=== PATIENT | female | born 1995 | race Caucasian/White ===

== ENCOUNTER 2018-11-01 18:09 | Observation (INO) ==
--- NOTE | 2018-11-01 18:51 | OB/GYN Progress Note ---
Date of Encounter: 11/01/18 Time of Encounter: 18:51 - Assessment and Plan (1) 39 weeks gestation of Current Visit: Yes Status: Acute Patient declined repeat cervical exam stating she knows she has not made any change NST reactive Discharge home with labor precautions and how to increased comfort at the end of FOllow up in the office as scheduled and PRN POC per consult with Dr Becker. (2) NST (non-stress test) reactive Current Visit: Yes Status: Acute Subjective - Subjective Principal diagnosis: Labor evaluation Interval history: MS Dowell is a at 39 weeks and 0 days that presents to triage with c/o contractions. She states positive movement. She denies headaches, vision changes, epigastric pain, leaking of fluid, and vaginal bleeding. She has kimball a normal course. Antepartum ROS: movement normal, contractions Objective - Vital Signs Vital Signs: Intake and Output 11/01/18 11/01/18 11/01/18 07:59 15:59 23:59 Other: Weight 85.7 kg Patient Weight 11/01/18 23:59 Weight 85.7 kg - Exam FHR: auscultation normal, category 1 FHR comments: Baseline 134 moderate variability with > 15 x 15 accels and no decels Contractions every 2-5 minutes Abdomen: Present: normal appearance, soft, gravid Uterus: Present: normal. Absent: firm Cervical dilation: 1-2 Cervix effacement: 80 station: -2
[2018-11-01 19:06] LABS: Bilirubin,Urine Negative (Negative); Blood,Urine Negative (Negative); Clarity,Urine Clear (Clear); Color,Urine Yellow (Yellow); Glucose,Urine (UA) Normal (Normal); Ketones,Urine 15 mg/dL (Negative); Leukocyte Esterase,Urine Moderate (Negative); Nitrite,Urine Negative (Negative); Protein,Urine Negative (Neg-Trace); Specific Gravity,Urine 1.014 (1.010-1.025); Urobilinogen,Urine Normal (Normal)
[2018-11-01 19:09] LABS: Amphetamine Screen,Urine Negative ng/mL (Cutoff=1000); Barbiturate Screen,Urine Negative ng/mL (Cutoff=200); Benzodiazepines Screen,Urine Negative ng/mL (Cutoff=200); Cannabinoid Screen,Urine Negative ng/mL (Cutoff = 50); Cocaine Screen,Urine Negative ng/mL (Cutoff= 300); Opiate Screen,Urine Negative ng/mL (Cutoff=300); Phencyclidine Screen,Urine Negative ng/mL (Cutoff=25)
[2018-11-01 19:11] LABS: Bacteria,Urine Few per hpf (None-Few)
== END 2018-11-01 19:48 | disposition home or self-care (01) ==
LOC: 1NENULAB
PROVIDERS: ADMIT Advanced Practice Midwife; ATTEND Advanced Practice Midwife

== ENCOUNTER 2018-11-06 20:11 | Inpatient (IN) ==
[2018-11-06] MEDS ORDERED: Ondansetron 4 MG/2 ML VIAL IVP PRN (20:55)
[2018-11-06] MEDS ORDERED: Naloxone 0.4 MG/ML INJ IVP PRN (20:55)
[2018-11-06] MEDS ORDERED: miSOPROStol 25 MCG TABLET PO PRN (20:55)
[2018-11-06] MEDS ORDERED: *HR* Nalbuphine 10 MG/ML AMPUL IVP PRN (20:55)
[2018-11-06] MEDS ORDERED: Lidocaine 1% 20 ML MDV INFILT PRN (20:55)
[2018-11-06] MEDS ORDERED: Famotidine 20 MG/2 ML VIAL IVP PRN (20:55)
[2018-11-06] MEDS ORDERED: Metoclopramide 10 MG/2 ML VIAL IVP PRN (20:55)
[2018-11-06] MEDS ORDERED: Oxytocin 20 units/ LR 1000 mL 20 UNIT/1,000 ML BAG IVC SCH (21:00)
[2018-11-06] MEDS ORDERED: Ringers Solution, Lactated 1,000 ML IVC SCH (21:00)
[2018-11-06] MEDS ORDERED: EPHEDrine 50 MG/ML VIAL IVP PRN (22:34)
--- NOTE | 2018-11-06 22:34 | Anesthesia Evaluation PreOp ---
Date of Encounter: 11/06/18 Time of Encounter: 22:32 - Past History Planned Operation: abbi Cardiac History: Denies any Significant Hx Pulmonary History: Denies Any Significant HX BUFFET SERVER History: Denies Any Significant HX Other Medical History: Denies Any Significant HX Anesthesia History: No Prior Anesthetic Complications, Past Anesthesia (none) : Yes (g1, 39.5 weeks) Alcohol Use: none Drug use: none Medications and Allergies Ondansetron [Zofran ODT] 8 mg SL Q8H PRN 11/01/18 [History] Allergy/AdvReac Type Severity Reaction Status Date / Time codeine AdvReac See Verified 11/01/18 18:24 Comments - Meds/Allergy Pre-op Review Medications Reviewed: Yes Allergies Reviewed: Yes Beta Blockers on Current Med List: No Anesthesia Exam - HEENT Pupil (Motor): Pupils equal Mallampati: I Teeth: Normal Oral Opening: Greater than 3 - BUFFET SERVER LOC: Oriented BUFFET SERVER Motor: Normal RUE, Normal LUE, Normal RLE, Normal LLE, Normal Face BUFFET SERVER Sensory: Normal: RUE, LUE, RLE, LLE, Face - Cardiac Rhythm: Regular Murmur: None JVD: No Carotid Bruit: No - Pulmonary Breath Sounds: bilateral Clear Respiratory Effort: Symmetrical Anesthesia Assess/Plan ASA Score: 2 Level of consciousness: Cooperative Anesthetic Plan: Epidural Monitoring Plan: Standard Monitors
[2018-11-06] MEDS ORDERED: Epidural Premix (fent/bupiv) 110 ML EP SCH (22:45)
--- NOTE | 2018-11-06 23:39 | OB/GYN History & Physical ---
Date of Encounter: 11/06/18 Time of Encounter: 23:14 Assessment and Plan (1) 39 weeks gestation of Current visit: No Status: Acute Admit for IOL at 39w5d (2) Encounter for elective induction of labor Current visit: Yes Status: Acute Plan of care discussed with Ashley Mcknight CNM who saw patient in the office today -Cervical fong ripening balloon -PO Cytotec if inadequate contraction pattern -AROM when appropriate -Pitocin augmentation if needed -IV pain medication or epidural when patient desires. (3) NST (non-stress test) reactive Current visit: No Status: Acute FHR 120 bpm, moderate variability, +15x15 accels, no decels. History of Present Illness Chief complaint: IOL at 39w5d HPI: Ms. Dowell is a 23 year old female at 39w5d who presents for scheduled IOL for term with favorable cervix. She reports positive movement, denies contractions, bleeding, and fluid leakage. She denies any problems with this . Blood type A+ GBS negative Rubella Immune HBSAG negative T. Pall negative HIV NR Hep C NR Past Med Surg Social Fam HX - Past Medical History Source: patient Medical history: no medical history Psychiatric history: no psych history - Past Surgical History Surgical History: other Additional surgical history: teeth pulled - Social History Smoking Status: Never smoker Smokeless Tobacco Status: No Alcohol use: none Drug use: none Current living situation: Home - Independent Activity Level: Independent ambulation Recent Out of Country Travel Within the Last 8 Weeks: No Exposure or Possible Exposure to Illness During Travel: No - Family History Sister Age: 24 Living Status: Still Living Hx Family Cardiac Disorders: No Hx Family Respiratory Disorders: No Hx Family Cancer: No Hx Family GI Disorders: No Hx Family Genitourinary Disorders: No Hx Family Endocrine Disorder: No Hx Family Musculoskeletal Disorders: No Hx Family Neuromuscular Disorders: No Hx Family Neurologic Disorders: No Hx Family HEENT Disorders: No Hx Family Autoimmune Disorders: No Hx Family Reproductive Disorders: No Hx Family Psychosocial Disorders: No Hx Family Medical Disorders: No Obstetrical History - Pregnancies : 1 Para: 0 Term: 0 : 0 Ab's: 0 Livin Medications and Allergies Ondansetron [Zofran ODT] 8 mg SL Q8H PRN 11/01/18 [History] Allergy/AdvReac Type Severity Reaction Status Date / Time codeine AdvReac See Verified 11/01/18 18:24 Comments Review of System OB All systems PM: reviewed and no additional remarkable complaints except as stated Exam - Vital Signs Vital signs: Initial Vital Signs Pulse Resp BP 109 15 99/58 11/06/18 22:27 11/06/18 22:27 11/06/18 22:27 - Constitutional Constitutional: well developed, well nourished, no acute distress, average body habitus - HEENT HEENT: Normocephaly, Mucus Membranes Moist - Neck Neck exam: full ROM - Lungs Respiratory exam: CTAB - Cardiovascular Cardiovascular exam: RRR, +S1, +S2 - Abdomen Abdomen: Present: bowel sounds normal, gravid, non tender - Extremities Extremities exam: full ROM, normal capillary refill, normal inspection - Vulva Vulva: bilateral: normal - Vagina Vagina: Present: normal moisture - Cervix Dilation: 3 Effacement: 50 Station: -2 - Uterus Uterus exam: Present: normal size, normal contour - Anus/Rectum Anus/Rectum: Present: normal perianal skin Results All other labs normal. - VTE Reasons for not Prescribing Prophylaxis: Treatment not Indicated - Low risk for VTE
[2018-11-06 23:58] LABS: Basophils % 0.2 %; Eosinophils # 0.1 K/mcL (0.0-0.6); Eosinophils % 0.6 %; Hematocrit 33.9 % (35.3-44.9); Hemoglobin 10.8 g/dL (11.5-15.4); Immature Granulocytes % 0.3 % (0-4); Lymphocytes % 21.8 %; Mean Corpuscular HGB Conc 31.9 g/dL (31.6-35.5); Mean Corpuscular Hemoglobin 25.6 pg (28.0-33.3); Mean Corpuscular Volume 80.3 fL (83.0-100.0); Monocytes # 0.8 K/mcL (0.0-1.3); Monocytes % 8.6 %; Neutrophils # 6.2 K/mcL (1.6-8.9); Platelet Count 255 K/mcL (140-400); Red Blood Count 4.22 M/mcL (3.82-4.97); Red Cell Distribution Width 14.6 % (11.5-14.5); Segmented Neutrophils % 68.5 %; White Blood Count 9.1 K/mcL (4.3-11.1)
--- NOTE | 2018-11-07 | Event Note ---
Date of Encounter: 11/06/18 Time of Encounter: 23:58 Double cervical fong balloon inserted without difficulty. 60mL sterile water inserted into uterine balloon, 40 mL sterile water instilled in vaginal balloon. Patient tolerated with minimal discomfort but did experiencing vomiting immediately after placement. Zofran given as ordered.
[2018-11-07 00:02] LABS: Amphetamine Screen,Urine Negative ng/mL (Cutoff=1000); Barbiturate Screen,Urine Negative ng/mL (Cutoff=200); Benzodiazepines Screen,Urine Negative ng/mL (Cutoff=200); Cannabinoid Screen,Urine Negative ng/mL (Cutoff = 50); Cocaine Screen,Urine Negative ng/mL (Cutoff= 300); Opiate Screen,Urine Negative ng/mL (Cutoff=300); Phencyclidine Screen,Urine Negative ng/mL (Cutoff=25)
--- NOTE | 2018-11-07 00:31 | Anesthesia Procedures ---
Date of Encounter: 11/07/18 Time of Encounter: 00:29 Procedures: Anesthesia - Epidural/Spinal Patient ID/Chart reviewed: Yes Patient examined: Yes OB Eval: Contractions: Non-stressed pattern Consent Obtained: Yes Supplemental Oxygen: None/Room Air Site Prep: Aseptic Technique Patient position: upright Local Anesthetic: Lidocaine 1% Amount of Local Anesthetic used: 3 Touhy Needle Gauge: 18 Touhy Needle Depth (cm): 8 Catheter Depth at Skin (cm): 13 Test Dose (1.5% Lido + Epi): Volume given (mls): 3 Test Dose Result: Negative Loading Dose: Fentanyl (mcg): 100 Loading Dose: Other: 6ml 0.2% ropivicaine Loading Dose Administered: Thru Touhy Needle Infusion Med: 0.125% Bupivacaine w/ 2 mcg/ml Fentanyl Infusion Rate (mls/hr): [address]: Tegaderm Interspace Used: L4-L5 Loss of Resistance (MEREDITH): Yes Blood: No CSF: No Paresthesia: No Procedure: strict asepsis, one attempt without redirections. good MEREDITH, no parasthesias, no heme, no csf. bolus through needle, gtt to 14cc/hr. FHR unchanged
--- NOTE | 2018-11-07 04:19 | Event Note ---
Date of Encounter: 11/07/18 Time of Encounter: 03:40 Patient expelled fong balloon while having a bowel movement. Accepts PO Cytotec if contractions will allow.
--- NOTE | 2018-11-07 09:15 | OB Labor Progress Note ---
Date of Encounter: 11/07/18 Time of Encounter: 09:12 Labor Progress Note - Subjective Subjective: Patient doing well. Discussed POC with patient. Patient denies any questions or concerns. - Cervix Cervix: 4.5 per RN - Heart Tones Heart Tones: 145 bpm moderate variability +15x15 accels no decels noted. Cat. 1 tracing - [place]: 2-2.5 min apart - Interventions Interventions: EFM strip reviewed - Plan Physician notified: No Plan: Continue labor management Will start Pitocin
[2018-11-07] MEDS ORDERED: Bupivacaine-MPF 0.25% 10 ML VIAL ONE (10:02)
[2018-11-07] MEDS ORDERED: *HR* FentaNYL (PF) 100 MCG/2 ML VIAL ONE (10:02)
--- NOTE | 2018-11-07 11:30 | Anesthesia Procedures ---
Date of Encounter: 11/07/18 Time of Encounter: 11:03 Procedures: Anesthesia - Epidural/Spinal Patient ID/Chart reviewed: Yes Patient examined: Yes OB Eval: Gestational age: 39 weeks 6 days OB Eval: : 1 OB Eval: Hx Para: 0 OB Eval: Contractions: Non-stressed pattern Consent Obtained: Yes Supplemental Oxygen: None/Room Air Site Prep: Aseptic Technique, Sterile prep and drape, 0.5% Chlorhexidine/Alcohol Patient position: upright Local Anesthetic: Lidocaine 1% Amount of Local Anesthetic used: 3 Touhy Needle Gauge: 18 Touhy Needle Depth (cm): 7 Catheter Depth at Skin (cm): 12 Test Dose (1.5% Lido + Epi): Volume given (mls): 3 Test Dose Result: Negative Loading Dose: 0.25% Marcaine (mls): 5 Loading Dose: Fentanyl (mcg): 100 Loading Dose Administered: Thru Catheter Infusion Med: 0.125% Bupivacaine w/ 2 mcg/ml Fentanyl Infusion Rate (mls/hr): 14 (w/ demand bolus of 5mL q30min PRN) Catheter Secured in Place: Tegaderm, Tape Interspace Used: L3-L4 Loss of Resistance (MEREDITH): Yes Blood: No CSF: No Paresthesia: No Procedure: successful on 1st attempt; Patient tolerated procedure well; VSS Vitals + FHT's: see Artie LARA's electronic records for VS entry.
--- NOTE | 2018-11-07 12:21 | OB Labor Progress Note ---
Date of Encounter: 11/07/18 Time of Encounter: 12:18 Labor Progress Note - Subjective Subjective: Patient resting comfortably with epidural in place. An catheter draining clear yellow urine. - Cervix Cervix: 6.5/90/-1 - Heart Tones Heart Tones: 145 bpm moderate variability +15x15 accels early decel noted. - [place]: 3-4 min apart - Interventions Interventions: SVE, AROM moderate amount of clear fluid. IUPC placed without difficulty. - Plan Physician notified: Yes Plan: Dr. Larose updated on patient's labor status continue labor management anticipate
--- NOTE | 2018-11-07 20:07 | OB/GYN Procedure Note ---
Delivery - Delivery Date: 11/07/18 Provider: Ashley Mcknight Intrapartum events: none Delivery induction: AROM, oxytocin, fong Delivery monitor: external FHT, internal uterine Anesthesia: epidural Quantitated Blood Loss: 150 - Infant (s) A Delivery Date: 11/07/18 Delivery Time: 19:36 Presentation: vertex Position: MAURICIO Route of delivery: Gender: Male Viability: Viable Pounds: 7 Ounces: 5 at 1 minute: 9 at 5 mins: 10 Shoulder Dystocia: not encountered Specimens collected: cord blood Placenta: spontaneous, uterine exploration Cord: nuchal cord (x1 loose), 3 umbilical vessels, nuchal reduced - Repair Episiotomy: none Laceration Description: Perineal - 2nd Degree (repaired with 3-0 vicryl) - Complications Delivery complications: none - Disposition Mom disposition: stable in LDR disposition: stable in LDR - Comments Comments: Called to LDR. Patient complete and ready to push. Patient placed in stirrups and prepped for vaginal delivery. Under maternal effort patient delivered a viable male infant. A nuchal cord was noted and easily reduced. No shoulder dystocia or meconium noted. was placed on maternal abdomen. A second degree laceration was noted a repaired with 3-0 vicryl. Cord was clamped and cut after pulsations ceased. Cord blood and segment was collected. Placenta delivered spontaneously and visually intact. Uterus was explored and blood clots were expressed. EBL 150, Apgars 9/10, pericare provided. All counts correct. Both Mother and infant stable in LDR for 2 hour recovery.
[2018-11-07] MEDS ORDERED: Ibuprofen 600 MG TABLET PO PRN (22:41)
[2018-11-07] MEDS ORDERED: Oxytocin 20 units/ LR 1000 mL 20 UNIT/1,000 ML BAG IVC SCH (22:41)
[2018-11-07] MEDS ORDERED: Benzocaine/Menthol 56 GM AEROSOL SPRAY TP PRN (22:41)
[2018-11-08] MEDS: Acetaminophen 325 MG TABLET PO PRN ×2 (00:41→15:14)
[2018-11-08] MEDS: Prenatal Vit/FA 1 EACH TABLET PO SCH (09:15)
--- NOTE | 2018-11-08 12:25 | OB/GYN Progress Note ---
Date of Encounter: 11/08/18 Time of Encounter: 12:23 - Assessment and Plan (1) Status post vaginal delivery Current Visit: Yes Status: Acute Patient meeting day one milestones. Pain well-controlled with prescribed medications. Voiding without difficulty, tolerating regular diet, bleeding light. No bowel movement yet. Anticipate discharge tomorrow. Patient desires to stay overnight. (2) Breast feeding status of mother Current Visit: Yes Status: Acute (3) Second degree perineal laceration Current Visit: Yes Status: Acute Motrin, Dermoplast, ice packs as needed for discomfort. Subjective - Subjective Principal diagnosis: Status post vaginal delivery Interval history: Delivery Date: 11/07/18 Provider: Ashley Mcknight Intrapartum events: none Delivery induction: AROM, oxytocin, fong Delivery monitor: external FHT, internal uterine Anesthesia: epidural Quantitated Blood Loss: 150 - Infant (s) A Delivery Date: 11/07/18 Delivery Time: 19:36 Presentation: vertex Position: MAURICIO Route of delivery: Gender: Male Viability: Viable Pounds: 7 Ounces: 5 at 1 minute: 9 at 5 mins: 10 Shoulder Dystocia: not encountered Specimens collected: cord blood Placenta: spontaneous, uterine exploration Cord: nuchal cord (x1 loose), 3 umbilical vessels, nuchal reduced - Repair Episiotomy: none Laceration Description: Perineal - 2nd Degree (repaired with 3-0 vicryl) - Complications Delivery complications: none - Disposition Mom disposition: stable in LDR disposition: stable in LDR - Comments Comments: Called to LDR. Patient complete and ready to push. Patient placed in stirrups and prepped for vaginal delivery. Under maternal effort patient delivered a viable male . A nuchal cord was noted and easily reduced. No shoulder dystocia or meconium noted. Infant was placed on maternal abdomen. A second degree laceration was noted a repaired with 3-0 vicryl. Cord was clamped and cut after pulsations ceased. Cord blood and segment was collected. Placenta d elivered spontaneously and visually intact. Uterus was explored and blood clots were expressed. EBL 150, Apgars 9/10, pericare provided. All counts correct. Both Mother and infant stable in LDR for 2 hour recovery. Patient reports: appetite normal, voiding normally, pain well controlled, ambulating normally : doing well, nursing well Objective - Latest Vital Signs Latest vital signs: Vital Signs Temp Pulse Pulse Resp BP Pulse Ox 11/08/18 07:35 98.4 F 84 16 97/66 97 11/08/18 04:15 97.4 F L 77 14 96/64 99 11/08/18 01:30 98.9 F 11/08/18 00:30 100.3 F H 89 14 111/73 96 11/07/18 23:30 98.9 F 86 14 105/68 97 11/07/18 22:30 98.1 F 87 87 16 114/70 99 Intake and Output 11/07/18 11/08/18 11/08/18 23:59 07:59 15:59 Intake Total 240 / 240 400 / 400 Output Total 500 / 500 1200 / 1300 100 / 1300 Balance -260 / -260 -800 / -900 -100 / -900 Intake: Oral 240 / 240 400 / 400 Output: Urine 500 / 500 1200 / 1300 100 / 1300 Other: Weight 82 kg - Exam Lungs: bilateral: normal Chest: Normal S1, Normal S2 Extremities: Present: normal Abdomen: Present: normal appearance, soft Uterus: Present: normal, firm Uterus Position: At Umbilicus, Midline
[2018-11-09] MEDS ORDERED: Lanolin 7 G OINT...G. TP PRN (02:26)
[2018-11-09 08:44] VITALS: BP 122/67
[2018-11-09] MEDS: Prenatal Vit/FA 1 EACH TABLET PO SCH (09:24)
--- NOTE | 2018-11-09 12:35 | Discharge Summary ---
Date of Encounter: 11/09/18 Time of Encounter: 12:33 - Discharge Diagnosis (1) Breast feeding status of mother Priority: Secondary Status: Acute Comments: Community resources provided (2) Status post vaginal delivery Priority: Primary Status: Acute Comments: Feeling well Tolerating regular diet Pain well-controlled with by mouth pain meds Ambulating independently Voiding independently Lochia light Passing flatus, no BM yet Vital signs stable Discharge home today - Discharge Medications Prescriptions: New Breast Pump [BREAST PUMP] 1 each .ROUTE AD #1 each Acetaminophen [Tylenol] 650 mg PO Q6HR PRN tablet PRN Reason: Mild Pain Ibuprofen [Motrin] 600 mg PO Q6HR PRN #30 tablet PRN Reason: Cramping Benzocaine/Menthol [place] [Dermoplast [place]] 1 appl TP QID PRN aerosol PRN Reason: See Comments Docusate [Colace] 100 mg PO BID #30 capsule Lanolin [Lansinoh] 1 appl TP TID PRN oint...g. PRN Reason: sore nipples Continued Ondansetron [Zofran ODT] 8 mg SL Q8H PRN PRN Reason: Nausea Home Medications: Ondansetron [Zofran ODT] 8 mg SL Q8H PRN 11/01/18 [History] Breast Pump [BREAST PUMP] 1 each .ROUTE AD #1 each 11/08/18 [Rx] Acetaminophen [Tylenol] 650 mg PO Q6HR PRN tablet 11/09/18 [Rx] Benzocaine/Menthol [place] [Dermoplast [place]] 1 appl TP QID PRN aerosol 11/09/18 [Rx] Docusate [Colace] 100 mg PO BID #30 capsule 11/09/18 [Rx] Ibuprofen [Motrin] 600 mg PO Q6HR PRN #30 tablet 11/09/18 [Rx] Lanolin [Lansinoh] 1 appl TP TID PRN oint...g. 11/09/18 [Rx] Allergies/Adverse Reactions: Allergy/AdvReac Type Severity Reaction Status Date / Time codeine AdvReac See Verified 11/01/18 18:24 Comments Data Procedures and tests throughout hospitalization: Laboratory Tests 11/06/18 11/06/18 22:40 22:41 WBC 9.1 RBC 4.22 Hgb 10.8 L Hct 33.9 L MCV 80.3 L MCH 25.6 L MCHC 31.9 RDW 14.6 H Plt Count 255 MPV 10.0 Immature Gran % 0.3 Seg Neutrophils % 68.5 Lymphocytes % 21.8 Monocytes % 8.6 Eosinophils % 0.6 Basophils % 0.2 Neutrophils # 6.2 Lymphocytes # 2.0 Monocytes # 0.8 Eosinophils # 0.1 Basophils # 0.0 Urine Opiates Screen Negative Ur Buprenorphine Scrn Negative Ur Barbiturates Screen Negative Ur Phencyclidine Scrn Negative Ur Amphetamines Screen Negative U Benzodiazepines Scrn Negative Urine Cocaine Screen Negative U Marijuana (THC) Screen Negative Ur Drug Screen Interp See Below Date of admission: 11/06/18 20:11 Primary care physician: PCP NONE Discharging clinician: Roma Roe Anticipated date of discharge: 11/09/18 - Patient Status Disposition: Home, Self-Care Condition: Good Functional capacity at discharge: independent ambulation Overall status at discharge: patient is progressing back to baseline - Discharge Instructions Follow Up With: NONE,PCP [Primary Care Provider] - Ashley Mcknight CNM [Non-Partnered Physician] - - Diet and Activity Activity: increase activity as tolerated Diet: regular diet Hospital Course Reason for admission: induction of labor Delivery: Episiotomy: none Laceration: 2nd degree Other procedures: none complications: none Discharge diagnosis: IUP at term delivered baby: male Time Attestation: Total time spent providing and/or coordinating discharge services: Time Spent: Less than 30 minutes Exam - Constitutional Vitals: Temp Pulse Resp BP Pulse Ox 99 F 122 14 122/67 99 11/09/18 08:42 11/09/18 08:42 11/09/18 08:42 11/09/18 08:42 11/09/18 08:42 General appearance IM: A&O X 3, pleasant, obese, answers questions appropriately - Respiratory Respiratory exam: Present: CTAB - Cardiovascular Cardiovascular exam IM: Present: RRR, +S1, +S2 - GI/Abdominal GI/Abdominal exam IM: normal bowel sounds, no peritoneal signs - Rectal Rectal exam: deferred - Uterine Tone: Firm Uterus Position: 2 Fingers Below Umbilicus, Midline - Extremities Exam Extremities exam IM: Present: full ROM, normal capillary refill, normal inspection, radial pulses palpable and symmetrical - Neurological Exam Neurological exam: alert, CN II-XII intact, normal gait, oriented X3, reflexes normal, no focal deficits, strengths equal and symetr throughout - Psychiatric Additional comments: Signs and symptoms of depression discussed with patient and partner and both verbalized understanding of when to seek help
== END 2018-11-09 13:40 | disposition home or self-care (01) | DRG 807 ==
LOC: 1NENULAB 20:11 → 1NENUOBS 11-07 22:39
PROVIDERS: ADMIT Advanced Practice Midwife; ATTEND Registered Nurse

== ENCOUNTER → 2020-08-17 14:30 | Observation (INO) ==
[2020-08-17 12:17] LABS: Bacteria,Urine Few per hpf (None-Few); Bilirubin,Urine Negative (Negative); Blood,Urine Negative (Negative); Clarity,Urine Turbid (Clear); Color,Urine Yellow (Yellow); Glucose,Urine (UA) Normal (Normal); Ketones,Urine Negative (Negative); Leukocyte Esterase,Urine Moderate (Negative); Mucus,Urine Moderate per lpf (None-Few); Nitrite,Urine Negative (Negative); PH,Urine 7.5 pH Units (5.0-8.0); Protein,Urine 30 mg/dL (Neg-Trace); RBC,Urine 0-3 per hpf (0-3); Specific Gravity,Urine 1.024 (1.010-1.025); Squamous Epithelial Cell,Urine Many per hpf (None-Few)
[2020-08-17 13:31] LABS: Basophils % 0.3 %; Eosinophils # 0.1 K/mcL (0.0-0.6); Eosinophils % 0.6 %; Hematocrit 32.4 % (35.3-44.9); Hemoglobin 10.3 g/dL (11.5-15.4); Immature Granulocytes % 0.6 % (0-4); Lymphocytes # 1.7 K/mcL (0.6-4.6); Lymphocytes % 14.9 %; Mean Corpuscular HGB Conc 31.8 g/dL (31.6-35.5); Mean Corpuscular Hemoglobin 26.8 pg (28.0-33.3); Mean Corpuscular Volume 84.2 fL (83.0-100.0); Monocytes # 0.6 K/mcL (0.0-1.3); Monocytes % 5.3 %; Neutrophils # 9.1 K/mcL (1.6-8.9); Platelet Count 299 K/mcL (140-400); Red Blood Count 3.85 M/mcL (3.82-4.97); Red Cell Distribution Width 14.3 % (11.5-14.5); Segmented Neutrophils % 78.3 %; White Blood Count 11.6 K/mcL (4.3-11.1)
[2020-08-17 13:46] LABS: Alanine Aminotransferase 9 Units/L (7-52); Aspartate Amino Transferase 11 Units/L (13-39); BUN/Creatinine Ratio 9 (6-26); Blood Urea Nitrogen 4 mg/dL (6-20); Lactate Dehydrogenase 101 Units/L (140-271); Uric Acid 4.2 mg/dL (2.3-7.6); eGFR For African Americans > 60 (> 60); eGFR For Non-African Americans > 60 (> 60)
[~2020-08-17 14:30] MED LIST: Famotidine 20 MG TABLET PO SCH; Ringers Solution, Lactated 1,000 ML IVC ONE; cefTRIAXone 1,000 MG in 0.9 % Sodium Chloride Mini Bag 100 ML IVPB ONE; polyethylene glycoL 3350 17 GM POWD.PACK PO SCH
== END | disposition home or self-care (01) ==
LOC: 1NENULAB
PROVIDERS: ADMIT Advanced Practice Midwife; ATTEND Advanced Practice Midwife

== ENCOUNTER → 2020-10-27 20:18 | Observation (INO) ==
[2020-10-27 18:15] VITALS: BP 102/57; PULSE 92; TEMP 98.8
== END | disposition home or self-care (01) ==
LOC: 1NENULAB
PROVIDERS: ADMIT Registered Nurse; ATTEND Registered Nurse

== ENCOUNTER 2020-11-15 08:14 | Inpatient (IN) ==
[2020-11-15] MEDS ORDERED: Ondansetron 4 MG/2 ML VIAL IVP PRN (08:20)
[2020-11-15] MEDS ORDERED: *HR* Nalbuphine 10 MG/ML AMPUL IV PRN (08:20)
[2020-11-15] MEDS ORDERED: Naloxone 0.4 MG/ML INJ IVP PRN (08:20)
[2020-11-15] MEDS ORDERED: Famotidine 20 MG/2 ML VIAL IVP PRN (08:20)
[2020-11-15] MEDS ORDERED: Metoclopramide 10 MG/2 ML VIAL IVP PRN (08:20)
[2020-11-15] MEDS ORDERED: Ringers Solution, Lactated 1,000 ML IVC SCH (08:30)
[2020-11-15] MEDS ORDERED: Oxytocin 20 units/ LR 1000 mL 20 UNIT/1,000 ML BAG IVC SCH ×2 (08:30→19:45)
[2020-11-15 09:16] LABS: Basophils % 0.3 %; Eosinophils # 0.1 K/mcL (0.0-0.6); Hematocrit 33.1 % (35.3-44.9); Hemoglobin 10.8 g/dL (11.5-15.4); Immature Granulocytes % 0.7 % (0-4); Lymphocytes # 1.6 K/mcL (0.6-4.6); Lymphocytes % 23.3 %; Mean Corpuscular HGB Conc 32.6 g/dL (31.6-35.5); Mean Corpuscular Hemoglobin 26.1 pg (28.0-33.3); Mean Platelet Volume 9.9 fL (9.4-12.4); Monocytes # 0.5 K/mcL (0.0-1.3); Monocytes % 7.5 %; Neutrophils # 4.7 K/mcL (1.6-8.9); Platelet Count 252 K/mcL (140-400); Red Blood Count 4.14 M/mcL (3.82-4.97); Red Cell Distribution Width 14.8 % (11.5-14.5); Segmented Neutrophils % 67.2 %; White Blood Count 7.1 K/mcL (4.3-11.1)
[2020-11-15 09:48] LABS: Influenza A PCR Negative (Negative); Influenza B PCR Negative (Negative); Resp. Syncytial Virus PCR Negative (Negative); SARS-CoV-2 by PCR (In House) Negative (Negative)
[2020-11-15 10:15] LABS: Amphetamine Screen,Urine Negative ng/mL (Cutoff=1000); Barbiturate Screen,Urine Negative ng/mL (Cutoff=200); Benzodiazepines Screen,Urine Negative ng/mL (Cutoff=200); Cannabinoid Screen,Urine Negative ng/mL (Cutoff = 50); Cocaine Screen,Urine Negative ng/mL (Cutoff= 300); Opiate Screen,Urine Negative ng/mL (Cutoff=300); Phencyclidine Screen,Urine Negative ng/mL (Cutoff=25)
[2020-11-15] MEDS ORDERED: EPHEDrine 50 MG/ML VIAL IVP PRN (12:23)
[2020-11-15] MEDS ORDERED: Epidural Premix (fent/bupiv) 110 ML EP SCH (12:30)
[2020-11-15] MEDS ORDERED: Benzocaine/Menthol 56 GM AEROSOL SPRAY TP PRN (19:45)
[2020-11-15] MEDS ORDERED: Measles/Mumps/Rubella Vacc 0.5 ML VIAL SQ PRN (19:45)
[2020-11-15] MEDS ORDERED: Lanolin 7 G OINT...G. TP PRN (19:45)
[2020-11-15] MEDS ORDERED: Ondansetron ODT 4 MG TAB.RAPDIS SL PRN (19:45)
[2020-11-15] MEDS: Ibuprofen 600 MG TABLET PO SCH (22:06)
[2020-11-15] MEDS: Acetaminophen 325 MG TABLET PO SCH (23:04)
[2020-11-16] MEDS: Ibuprofen 600 MG TABLET PO SCH ×2 (04:32→10:00)
[2020-11-16 08:29] VITALS: O2SAT 98
[2020-11-16] MEDS ORDERED: Prenatal Vit/FA 1 EACH TABLET PO SCH (09:00)
[2020-11-16] MEDS: Acetaminophen 325 MG TABLET PO SCH (10:00)
[2020-11-16 14:33] VITALS: BP 103/71; PULSE 72; TEMP 97.6
== END 2020-11-16 16:05 | disposition home or self-care (01) | DRG 560 ==
LOC: 1NENULAB 08:14 → 1NENUOBS 21:11
PROVIDERS: ADMIT Advanced Practice Midwife; ATTEND Advanced Practice Midwife